=== PATIENT | male | born 1950 | race Caucasian/White ===

== ENCOUNTER 2016-11-05 12:03 | Observation (INO) | payer MEDICARE, OTHER ==
--- NOTE | ~2016-11-05 | HP ---
History And Physical [id number] [place]. [address] NAME: ALISHA DALOTN : 48 STATUS : ADM Jocelyne PAT#: [id number] AGE: 66 ADM/REG DATE : 11/05/16 MR#: [id number] REPORT SERV DATE: 11/05/16 DICTATED BY: MAGUE TRACEY DATE: 11/05/16 REPORT STATUS : Draft TRANSCRIBED BY: MODHernán DATE: 11/05/16 DATE OF ADMISSION: 11/05/2016 CHIEF COMPLAINT: Chest pain. HISTORY OF PRESENT ILLNESS: The patient is a 66-year-old male with past medical history of O2 dependent COPD with 150 pack year history smoking history, quit approximately a year and year and half ago. also on chronic methadone, non-insulin dependent, prediabetes who presents after having chest pain for approximately last four to five days. Symptoms were noted to be at rest when he is watching TV lasting approximately 10-15 seconds and resolving but has been recurrent and even longer at times throughout the last 5 days. It is not reproducible with activity or deep breath. The patient did have mild chest trauma injury and back injury when trying to maneuver through wheelchair, had been worked up outpatient, does know about prior fracture. Symptoms are intermittent, moderate severity, occasionally sharp but currently just dull at times without radiating. The patient has not had any chest pain today, when he went to his PCP, he was noted to have EKG abnormalities. Unfortunately, this EKG is not available to us, and EKG in the ER does not show any acute dynamic changes. There is no associated headache, nausea, vomiting, shortness of breath, fever, or chills. The patient does have reported leukocytosis in clinic and also confirmed in emergency room. The patient reports that he has this at outside facilities. Also denies any recent steroid changes, this is of unclear etiology. There are no relieving symptoms but no provoking symptoms of chest pain. 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 Hanson and is also aware that he may need to have sleep study test at that time. ADDITIONAL REVIEW OF SYSTEMS: A 10-point review of systems negative except for that noted in the HPI. PAST MEDICAL HISTORY: COPD O2 dependent 4 L, bleeding ulcer secondary to NSAIDs requiring blood transfusions in the past and four to five day hospital stay years ago, pneumonia five times last year, diabetes, left femur fracture as a youth with repair, this was many years ago. FAMILY HISTORY: Negative for diabetes, hypertension, and heart disease. Positive cancer with lungs. ALLERGIES: NO KNOWN DRUG ALLERGIES. SOCIAL HISTORY: He quit 1-1/2 years ago from smoking, was a 3 pack per day x50 years for 150 pack year history. No alcohol, no illicits, accompanied by son who is good social support for the patient. The patient does report that he had approximately 40 pounds weight gain history since he quit smoking. PHYSICAL EXAMINATION: VITAL SIGNS: The patient blood pressure 138/67, temperature 98, pulse 96, respirations 18, History And Physical [address] [address] NAME: ALISHA DALTON : 48 STATUS : ADM Jocelyne PAT#: [id number] AGE: 66 ADM/REG DATE : 11/05/16 MR#: [id number] REPORT SERV DATE: 11/05/16 DICTATED BY: MAGUE TRACEY DATE: 11/05/16 REPORT STATUS : Draft TRANSCRIBED BY: MODL DATE: 11/05/16 O2 saturations 96% on 4 L. GENERAL: Well developed, well nourished. No acute distress. EYES: No scleral icterus. EOMI. ENT: Nares patent. Tongue midline. Poor dentition. RESPIRATORY: Clear to upper airway but does have mild end-expiratory wheeze. Mild increased AP diameter. CV: Regular rate. No rubs or gallops. Mildly hypertensive. No pedal edema. GI: Soft, nontender, mildly distended with increased prominent veins in abdominal wall, mild hepatomegaly. : Deferred. MUSCULOSKELETAL: Moves all extremities x4. SKIN: Warm, dry. LYMPH: No cervical or supraclavicular lymphadenopathy. HEME: No bleeding or bruising. NEURO: Alert and oriented. No asterixis. Moves all extremities x4. PSYCH: Appropriate mood and affect. EKG: Sinus rhythm, PACs rate 92 QTc 460. WBC 16.1, H and H 10.4 and 32.4 with platelets 293, INR 1.2. Chest PA lateral; pulmonary fibrosis scar versus atelectasis in both bases, healed previous rib fractures, age of compression deformity T6 and T11 unknown, correlation with history. BMP; sodium 132, potassium 3.5, chloride 92, bicarb 30, BUN creatinine 9 and 0.76, glucose 112, calcium 9.4, magnesium 2.1. Troponin negative. HOME MEDICATIONS: Vasotec, Glucophage, methadone, Percocet, and Zanaflex. ASSESSMENT AND PLAN: 1. Chest pain. 2. Chronic obstructive pulmonary disease, chronic O2 dependent. 3. Chronic narcotics. 4. Leukocytosis. 5. Healed rib fractures. 6. Prediabetes. 7. Mild hepatomegaly. 8. Back fracture. 9. Hypertension. 10.Questionable sleep apnea. PLAN: 1. For chest pain, repeat EKG not showing acute dynamic changes. We will need to obtain records from clinic as no description of irregularities were noted. QTc is currently 460. We will monitor while on methadone. The patient has not had a stress test in multiple years and I have reestablished field specialist who will monitor serial troponins, echocardiogram and stress test in a.m. if these are negative. He does have recent possible fall, injury with wheelchair but does not recall any acute trauma to the chest History And Physical [address] [address] NAME: ALISHA DALTON : 48 STATUS : ADM Jocelyne PAT#: [id number] AGE: 66 ADM/REG DATE : 11/05/16 MR#: [id number] REPORT SERV DATE: 11/05/16 DICTATED BY: MAGUE TRACEY DATE: 11/05/16 REPORT STATUS : Draft TRANSCRIBED BY: MODHernán DATE: 11/05/16 wall. Differential includes chest wall fractures versus COPD components. 2. Chronic obstructive pulmonary disease. Fibrotic lungs on imaging, is establishing care with Dr. Hanson at [facility] with insurance changes. 3. Chronic narcotic. Continue methadone and home medication. 4. Leukocytosis. The patient reports having this chronically. We will obtain additional workup for possible pneumonia although not clearly seen on imaging. The patient did have five episodes of this last year. Obtain prior labs, defer from antibiotics at this time. He has no additional acute signs of infection. We will additionally check UA. 5. Healed rib fractures. Reports having fall from wheelchair but not having any deeper reproducible pain at this time. 6. Pre-diabetes or type 2 diabetes non-insulin dependent, on metformin and monitor sliding scale insulin. 7. Hepatomegaly. Check ultrasound, LFTs, and hepatitis panel. Does have possible early caput medusae on physical exam. 8. Back fracture, outpatient workup, neurologically stable on clinical exam currently. We will monitor on fall precautions. 9. Hypertension on medications and p.r.n. 10.Questionable sleep apnea. Discussed with the patient family, possible outpatient sleep study. We will defer to Dr. Hanson, patient's bindery chief when able. All questions answered to the patient's family at bedside. DDN/MODL Mague Tracey MD / [id number] CC: Pepe Soni Jr, MD Lyndsay Frankenberg, DO
--- NOTE | ~2016-11-05 | DS ---
Discharge Summary [facility] [address] [place]. [address] NAME: ALISHA DALTON : 48 STATUS : DIS oJcelyne PAT#: [id number] AGE: 66 ADM/REG DATE : 11/05/16 MR#: [id number] REPORT SERV DATE: 11/07/16 DICTATED BY: JR. SONI WILLIAM JOHN DATE: 11/06/16 REPORT STATUS : Draft TRANSCRIBED BY: RYAN DATE: 11/06/16 ADMISSION DATE: 11/05/2016 DISCHARGE DATE: 11/05/2016 DISCHARGE DIAGNOSES: 1. Abnormal EKG. 2. Chronic obstructive pulmonary disease. 3. Chronic pain syndrome with chronic narcotic use including methadone. 4. History of leukocytosis. 5. History of back pain. OPERATIONS, PROCEDURES, AND TREATMENTS: 1. PA and lateral chest x-ray done 11/05 which showed pulmonary fibrosis with scarring versus atelectasis in both bases with healed previous rib fractures of indeterminate age. 2. Hepatic ultrasound done 11/05 was unremarkable. 3. Echocardiogram showed an ejection fraction of 55% with normal right ventricular size and function. DISCHARGE MEDICATIONS: 1. Enalapril 20 mg orally daily. 2. Methadone 30 mg orally every 12 hours. 3. Zanaflex 2 mg orally at bedtime. 4. Percocet 5/325 every 8 hours as needed. 5. Glucophage 500 mg orally daily. HOSPITAL COURSE: The patient is a 66-year-old, male, who presented to the emergency room after being sent from his primary care clinic. The patient has a very extensive smoking history with 150 pack year smoking history and oxygen-dependent COPD on 4 L oxygen chronically at home. He went to his primary care physician's office for what he thought was a blood draw. However, apparently, he was supposed to have an EKG for which he is not sure why. However, the EKG had some abnormal findings and he was advised to come to the emergency room. He does report occasional chest pain. However, this is fleeting, lasting less than few seconds and happens maybe a few times a week. His exam in the emergency room was unremarkable. EKG showed sinus rhythm, rate of [address] or T- wave changes. Repeat EKG showed sinus rhythm with few PVCs. No other acute changes. His records from his primary care office were indeed sent. There were a few nonspecific T-wave changes. However, no specific changes. The patient unfortunately drank coffee on the morning his stress test was ordered. Therefore, it had to be canceled. He absolutely desires discharge home. We discussed risk and he agrees to accept that risk. He will be discharged home. He had echo and ultrasound of liver all of which was normal. He will have an outpatient stress test. Follow with primary care in [place], [place] in one week. DIET: Regular. ACTIVITY: As tolerated. Discharge Summary [address] [address] NAME: ALISHA DALTON : 48 STATUS : DIS Jocelyne PAT#: [id number] AGE: 66 ADM/REG DATE : 11/05/16 MR#: [id number] REPORT SERV DATE: 11/07/16 DICTATED BY: JR. SONI WILLIAM JOHN DATE: 11/06/16 REPORT STATUS : Draft TRANSCRIBED BY: RYAN DATE: 11/06/16 For discharge exam and laboratory, please see daily progress note. WJF/RYAN Pepe Soni Jr, MD / [id number] CC: Pepe Soni Jr, MD SAMIYA JONES
[2016-11-05 12:46] LABS: BASOPHILS 0.1 %; BASOPHILS ABSOLUTE 0.01 10/3/uL (0.0-0.16); EOSINOPHILS 0.4 %; EOSINOPHILS ABSOLUTE 0.06 10/3/uL (0.0-0.53); HEMATOCRIT 32.4 % (40.0-51.0); HEMOGLOBIN 10.4 g/dL (13.6-17.8); IMMATURE GRANULOCYTES 0.3 %; IMMATURE GRANULOCYTES ABSOLUTE 0.05 10/3/uL (0.0-0.11); LYMPHOCYTES 9.3 %; MEAN CORPUS HGB CONC 32.1 g/dL (32.0-36.0); MEAN CORPUSCULAR HEMOGLOB 27.3 pg (26.0-34.0); MEAN PLATELET VOLUME 8.7 fL (9.2-13.0); MONOCYTES 4.8 %; MONOCYTES ABSOLUTE 0.77 10/3/uL (0.21-1.20); NEUTROPHILS 85.1 %; NEUTROPHILS ABSOLUTE 13.67 10/3/uL (2.02-8.40); PLATELET COUNT 293 10/3/uL (150-400); RBC DISTRIBUTION WIDTH 14.5 % (12.0-16.0); RED CELL COUNT 3.81 10/6/uL (4.7-6.1); WHITE BLOOD CELLS 16.1 10/3/uL (4.5-10.5)
[2016-11-05 12:47] LABS: ER CBC TAT 0 Hrs 09 Mins; MANUAL DIFF NO %
[2016-11-05 12:53] LABS: INTERNATIONAL NORMAL RATI 1.2 UNITS (-); PARTIAL THROMBO TIME 27.5 SEC (22.5-37.2)
[2016-11-05 13:02] LABS: BUN (BLOOD UREA NITROGEN) 9 MG/DL (6-23); CALCIUM, SERUM 9.4 MG/DL (8.5-10.4); CHEST PAIN PROFILE TAT 0 Hrs 25 Mins; CHLORIDE, SERUM 92 MMOL/L (96-112); CO2 (CARBON DIOXIDE) 30 MMOL/L (24-34); CREATININE 0.76 MG/DL (0.70-1.30); GFR AFRICAN AMERICAN 109 ML/MIN (>=60); GFR NON AFRICAN AMERICAN 94 ML/MIN (>=60); GLUCOSE, SERUM 112 MG/DL (60-99); POTASSIUM, SERUM 3.5 MMOL/L (3.5-5.3); SODIUM, SERUM 132 MMOL/L (135-148); TROPONIN I <0.02 NG/ML (<0.05)
[2016-11-05] MEDS ORDERED: METHATAB10 PO (14:52)
[2016-11-05] MEDS ORDERED: PCET PO (14:53)
[2016-11-05] MEDS ORDERED: GLUCPH PO (14:54)
[2016-11-05] MEDS ORDERED: ZANAFLEX2 MG PO ×2 (14:55→14:56)
[2016-11-05] MEDS ORDERED: VASOTEC20 MG PO (14:56)
[2016-11-05 17:04] LABS: ASCORBIC ACID (UR NOT ORDER) NEG (NEG); BILIRUBIN, URINE NEGATIVE (NEG); ER URINALYSIS TAT 0 Hrs 09 Mins; KETONE, URINE NEGATIVE (NEG); LEUKOCYTE ESTERASE(NOT OR NEG (NEG); NITRITE (URINE) NEG (NEG); WBC (NOT ORDERED) (RFLEX) < 1 (0-5)
[2016-11-06 05:29] LABS: BASOPHILS 0.1 %; BASOPHILS ABSOLUTE 0.01 10/3/uL (0.0-0.16); EOSINOPHILS 2.5 %; EOSINOPHILS ABSOLUTE 0.21 10/3/uL (0.0-0.53); IMMATURE GRANULOCYTES 0.2 %; IMMATURE GRANULOCYTES ABSOLUTE 0.02 10/3/uL (0.0-0.11); LYMPHOCYTES 35.6 %; LYMPHOCYTES ABSOLUTE 3.01 10/3/uL (0.67-4.30); MEAN CORPUS HGB CONC 32.3 g/dL (32.0-36.0); MEAN CORPUSCULAR HEMOGLOB 27.5 pg (26.0-34.0); MEAN CORPUSCULAR VOLUME 85.2 fL (80-100); MEAN PLATELET VOLUME 8.8 fL (9.2-13.0); MONOCYTES 11.5 %; MONOCYTES ABSOLUTE 0.97 10/3/uL (0.21-1.20); NEUTROPHILS 50.1 %; NEUTROPHILS ABSOLUTE 4.24 10/3/uL (2.02-8.40); PLATELET COUNT 261 10/3/uL (150-400); RBC DISTRIBUTION WIDTH 14.6 % (12.0-16.0); RED CELL COUNT 3.64 10/6/uL (4.7-6.1)
[2016-11-06 05:37] LABS: MANUAL DIFF NO %; WHITE BLOOD CELLS 8.5 10/3/uL (4.5-10.5)
[2016-11-06 05:43] LABS: A/G RATIO 0.7 (0.7-1.9); ALBUMIN 3.1 G/DL (3.5-5.0); ALKALINE PHOSPHATASE 98 U/L (45-117); BUN (BLOOD UREA NITROGEN) 9 MG/DL (6-23); CALCIUM, SERUM 8.8 MG/DL (8.5-10.4); CHLORIDE, SERUM 95 MMOL/L (96-112); CO2 (CARBON DIOXIDE) 31 MMOL/L (24-34); CREATININE 0.79 MG/DL (0.70-1.30); GFR AFRICAN AMERICAN 108 ML/MIN (>=60); GFR NON AFRICAN AMERICAN 93 ML/MIN (>=60); GLOBULIN 4.4 G/DL (2.5-4.1); PHOSPHORUS, SERUM 3.2 MG/DL (2.5-4.5); POTASSIUM, SERUM 3.9 MMOL/L (3.5-5.3); SGOT(AST) 14 U/L (5-40); SGPT(ALT) 19 U/L (5-65); SODIUM, SERUM 134 MMOL/L (135-148); TOTAL BILIRUBIN 0.5 MG/DL (0-1.2); TOTAL PROTEIN 7.5 G/DL (6.0-8.5); TROPONIN I <0.02 NG/ML (<0.05)
[2016-11-06 05:45] LABS: DIRECT BILIRUBIN < 0.1 MG/DL (0.0-0.4); GLUCOSE, SERUM 87 MG/DL (60-99); INDIRECT BILIRUBIN(NOT ORDER) 0.4 MG/DL (0.1-0.9)
[2016-11-06 06:02] LABS: PROCALCITONIN <0.05 ng/mL (<0.5)
[2016-11-06 06:26] LABS: B NATRIURETIC PEPTIDE (BNP) 33.4 PG/ML (< 100.0)
[2016-11-06 07:32] LABS: GLYCOHEMOGLOBIN (HbA1c) 5.8 % (4.7-6.1)
== END 2016-11-06 18:18 | disposition home or self-care (01) ==
LOC: ER 12:03 → CDU1 16:18 → CDU2 17:07
PROVIDERS: Emergency Medicine; Student in an Organized Health Care Education/Training Program
DX: R94.31 Abnormal electrocardiogram [ECG] [EKG] (principal); J44.9 Chronic obstructive pulmonary disease, unspecified; G89.4 Chronic pain syndrome; R16.0 Hepatomegaly, not elsewhere classified; F11.90 Opioid use, unspecified, uncomplicated; M54.9 Dorsalgia, unspecified; D72.829 Elevated white blood cell count, unspecified; R07.9 Chest pain, unspecified; J84.10 Pulmonary fibrosis, unspecified; E11.9 Type 2 diabetes mellitus without complications; F17.210 Nicotine dependence, cigarettes, uncomplicated; Z87.01 Personal history of pneumonia (recurrent); Z98.890 Other specified postprocedural states; Z99.89 Dependence on other enabling machines and devices; Z79.899 Other long term (current) drug therapy
CPT/HCPCS: 71020; 76705; 80048; 80053; 81001; 82248; 82962; 83036; 83735; 83880; 84100; 84145; 84484; 85025; 85610; 85730; 87449; 93005; 93306; 94640; 96372; 99285; A9270-GY; G0378